=== PATIENT | female | born 1985 | race Caucasian/White ===

== ENCOUNTER 2017-12-17 20:00 | Inpatient (IN) | payer BC ==
[2017-12-17] MEDS ORDERED: Insulin Regular 300 UNITS/3 ML VIAL SC PRN (23:13)
[2017-12-17] MEDS ORDERED: Penicillin G Potassium 5 MILL.UNITS in Sodium Chloride 0.9% 100 ML IVPB SCH (23:13)
[2017-12-17] MEDS ORDERED: Misoprostol 200 MCG TAB PR PRN (23:13)
[2017-12-17] MEDS ORDERED: Ibuprofen 800 MG TAB PO PRN (23:13)
[2017-12-17] MEDS ORDERED: HYDROcodone/Acetaminophen 5/325 mg Tablet PO PRN (23:13)
[2017-12-17] MEDS ORDERED: Carboprost 250 MCG/ML AMP IM PRN (23:13)
[2017-12-17] MEDS ORDERED: Methylergonovine 0.2 MG/ML VIAL IM PRN (23:13)
[2017-12-17] MEDS ORDERED: Zolpidem Tartrate 5 MG TAB PO PRN (23:13)
[2017-12-17] MEDS ORDERED: Acetaminophen 500 MG TAB PO PRN (23:13)
[2017-12-17] MEDS ORDERED: Lidocaine 1% (PF) 30 ML VIAL SC PRN (23:13)
[2017-12-17] MEDS ORDERED: Promethazine HCl 25 MG/ML VIAL IM PRN (23:13)
[2017-12-17] MEDS ORDERED: Ondansetron HCl/PF 4 MG/2 ML Vial IVP PRN (23:13)
[2017-12-17] MEDS ORDERED: LR / Pitocin 40 units/1000 ml 1,000 ML IV PRN (23:13)
[2017-12-17] MEDS ORDERED: Dextrose 50% Abboject 50 ML SYRINGE SLOW IVP PRN (23:13)
[2017-12-17] MEDS ORDERED: Dextrose 5% in Water 1,000 ML IV PRN (23:13)
[2017-12-17] MEDS ORDERED: Diphenoxylate HCl/Atropine Tablet PO PRN (23:13)
[2017-12-17] MEDS ORDERED: Insulin Detemir 100 UNITS/ML 35 UNITS in Pre-Filled Syringe 1 EACH SC SCH (23:45)
[2017-12-17 23:48] VITALS: BMI 41.8
[2017-12-18] MEDS: Lactated Ringer's 1,000 ML IV SCH ×3 (00:20→17:02)
[2017-12-18 00:49] LABS: Hemoglobin 11.3 g/dL (12.0-16.0); Mean Corpuscular HGB CONC 31.9 g/dL (32.0-36.0); Mean Corpuscular Hemoglobin 26.1 pg (27.0-31.0); Mean Corpuscular Volume 81.7 fl (81.0-99.0); Mean Platelet Volume 8.1 fL (7.4-10.4); Platelet Count 275 thou/uL (130-400); RBC Distribution Width 14.9 % (11.5-14.5); Red Blood Cell (RBC) Count 4.32 mill/uL (4.20-5.40)
[2017-12-18] MEDS: Misoprostol 100 MCG TAB VAG SCH ×4 (00:52→17:03)
[2017-12-18 01:31] LABS: HBSAg Index 0.33 S/CO (0-0.99); Hep B Surf Ag Non-Reactive S/CO (NonReactive); Syphilis Antibody Nonreactive (Nonreactive); Syphilis Antibody Index 0.06 S/CO (<1.00 Non-Reactive)
[2017-12-18] MEDS: Penicillin G 2.5 MILL.units 2.5 MILL.UNITS in Premix Bag 1 BAG IVPB SCH ×5 (01:47→17:02)
[2017-12-18] MEDS: LR 500 ML/Oxytocin 10 units 500 ML IV SCH ×2 (01:47→05:33)
[2017-12-18] MEDS ORDERED: DISCONTINUE ALL PREVIOUS NARCOTICS FS SCH (07:30)
[2017-12-18] MEDS ORDERED: Bupivacaine 0.5% 20 ML, Fentanyl 400 MCG in Sodium Chloride 0.9% 72 ML EPIDURAL SCH (07:30)
[2017-12-18] MEDS ORDERED: Naloxone HCl 0.4 mg/ml Vial IVP PRN ×2 (08:38)
[2017-12-18] MEDS ORDERED: Promethazine HCl 25 MG/ML VIAL IM PRN (08:38)
[2017-12-18] MEDS ORDERED: diphenhydrAMINE 50 MG/ML VIAL IVP PRN (08:38)
[2017-12-18] MEDS ORDERED: Lactated Ringer's 500 ML IV PRN (08:38)
[2017-12-18] MEDS ORDERED: Eucerin (Mineral Oil/Petrolatum,White) 30 gm Jar TOP PRN (08:38)
[2017-12-18] MEDS ORDERED: Acetaminophen 325 MG TAB PO PRN (08:38)
[2017-12-18] MEDS ORDERED: ePHEDrine/0.9% NaCl/PF SYRINGE 50 mg/10 ml SLOW IVP PRN (08:38)
[2017-12-18] MEDS ORDERED: Ondansetron HCl/PF 4 MG/2 ML Vial IVP PRN (08:38)
[2017-12-18] MEDS ORDERED: Fentanyl 4mcg/Marcaine 0.1% Cassette 100 ML EPIDURAL SCH (08:45)
[2017-12-18] MEDS ORDERED: Communication Order-Pharmacy FS SCH (08:45)
--- NOTE | 2017-12-18 08:51 | PDOC.LDHP ---
Labor and Delivery H&P Chief complaint: scheduled induction HPI: 32yo at 38w1d by LMP here for IOL due to IDDM. No complaints. No PIH sx. Received 1 dose cytotec over night. Current gestational age (weeks): 38 Due date: 12/31/17 Dating criteria: last menstrual period Grav: 2 Para: 1 Abnormal US findings: Yes (S>D EFW 96%) Past Medical History: T2DM, insulin controlled during Current medications: pre- vitamins, other (levemir 32 q am/72 q pm, novolog 04/05/12 with meals) Previous surgical history: other (LEEP) Allergies/Adverse Reactions: Allergies Allergy/AdvReac Type Severity Reaction Status Date / Time Sulfa (Sulfonamide Allergy Mild Rash Verified 12/17/17 23:45 Antibiotics) Social history: none - Physical Exam Vital signs reviewed and normal: yes Abnormal vital signs: occ mild range bp General: NAD Heart: RRR Lungs: CTAB Abdomen: gravid Extremeties: no edema FHT: category 1 Concow contractions every: q3min - Vaginal Exam cm dilated: 4 Effacement: 50% Station: -2 (arom clear) - OB Labs Blood type: A RH: positive Antibody Screen: negative HIV: negative RPR: negative HEPSAg: negative GBS: positive Rubella: immune - Assessment L&D Assessment: medically indicated induction - Plan Plan: admit to L&D, labor augmentation if indicated, informed consent obtained, anesthesia consult for pain management, other (q4hr accuchecks with mild SSI, clears for BS < 90, took 1/2 dose levemir last night.)
[2017-12-18] MEDS ORDERED: LR / Pitocin 40 units/1000 ml 1,000 ML ONE (09:40)
[2017-12-18] MEDS ORDERED: Lidocaine 1% (PF) 30 ML VIAL ONE (09:40)
--- NOTE | 2017-12-18 11:59 | PDOC.OPDEL ---
OB Operative/Delivery Note Delivery Dr/Surgeon: Zahira Assist: n/a Pre-Delivery Diagnosis: medically indicated induction Procedure/Post Delivery Dx: spontaneous vaginal delivery Weeks gestation: 38 Anesthesia: epidural - Findings A Sex: male Weight: 8 lb 15 oz - Additional Findings/Plan Placenta delivered: spontaneous Repaired Obstetrical Laceration: periurethral (left repaired with 3-0 vicryl, hemostasis noted) Estimated blood loss: 200 Compilations/Other Findings: brief shoulder dystocia, baby delivered OA presentation, NC x 1, reduced at perineum, restituted to right, right shoulder anterior, delivered with Gopi and suprapubic by TIO Morgan, total time on perineum < 1min. Gerald present shortly after delivery, no apparent injury at the time of after exam by Gerald. Cord gas sent. Baby skin to skin with mom after initial eval. Post delivery plan: routine recovery
[2017-12-18 12:01] LABS: Actual Bicarbonate (HCO3a) 29.6 mEq/L (22-26); Base Excess (BEa) -1.5 mEq/L (0 (+/-) 2.5)
[2017-12-18] MEDS ORDERED: diphenhydrAMINE 25 MG CAP PO PRN (16:13)
[2017-12-18] MEDS ORDERED: HYDROcodone/Acetaminophen 5/325 mg Tablet PO PRN ×2 (16:13)
[2017-12-18] MEDS ORDERED: Benzocaine/Menthol 20-0.5% 60 ML CAN TOP PRN (16:13)
[2017-12-18] MEDS ORDERED: Lanolin Ointment 7 GM TUBE TOP PRN (16:13)
[2017-12-18] MEDS ORDERED: Preparation H Ointment 28 GM TUBE PR PRN (16:13)
[2017-12-18] MEDS ORDERED: Milk Of Magnesia 30 ML UDCUP PO PRN (16:13)
[2017-12-18] MEDS ORDERED: LR / Pitocin 40 units/1000 ml 1,000 ML IV SCH (16:13)
[2017-12-18] MEDS ORDERED: Bisacodyl 10 MG SUPP PR PRN (16:13)
[2017-12-18] MEDS ORDERED: Ibuprofen 800 MG TAB PO SCH (16:30)
[2017-12-18] MEDS: metFORMIN 500 MG TAB PO SCH (17:46)
[2017-12-18] MEDS: Ferrous Sulfate 325 MG TAB PO SCH (17:48)
[2017-12-18] MEDS ORDERED: Bupivacaine HCl 0.5%/Epinephrine 1:200,000/PF 30 ml Vial ONE (18:40)
[2017-12-18] MEDS ORDERED: Bupivacaine 0.25% HCL 30 ML VIAL ONE (18:40)
[2017-12-18] MEDS ORDERED: Adacel (T-DAP) 0.5 ML VIAL IM ONE (21:00)
[2017-12-18] MEDS ORDERED: Insulin Detemir 100 UNITS/ML 35 UNITS in Pre-Filled Syringe 1 EACH SC SCH (21:00)
[2017-12-18] MEDS: Ibuprofen 800 MG TAB PO SCH (21:04)
[2017-12-18] MEDS: Docusate Calcium (SURFAK) 240 MG CAP PO SCH (23:48)
[2017-12-19] MEDS: Ibuprofen 800 MG TAB PO SCH ×3 (05:55→21:48)
[2017-12-19] MEDS ORDERED: glyBURIDE 2.5 MG TAB PO SCH (08:00)
--- NOTE | 2017-12-19 08:00 | PDOC.PP ---
Post Progress Note Post Day #: 1 PO intake tolerated: yes Flatus: yes Ambulation: yes Vital Signs (12 hours) Temp Pulse Resp BP 12/19/17 05:52 97.8 F 81 16 131/88 12/18/17 23:40 97.7 F 84 18 123/76 Weight Weight 229 lb - Physical Examination General: NAD Respiratory: non-labored breathing Abdominal: no distention, appropriately TTP Fundus firm & at: umb Skin: no rash Neurological: no gross focal deficits Psychiatric: normal affect Result Diagrams: 12/18/17 00:20 Additional Labs: Post Labs Blood Type A POSITIVE 12/18/17 00:20 Hep Bs Antigen Non-Reactive S/CO (NonReactive) 12/18/17 00:20 (1) Type 2 diabetes mellitus treated with insulin Code(s): E11.9 - TYPE 2 DIABETES MELLITUS WITHOUT COMPLICATIONS; Z79.4 - FOREPART RASPER (CURRENT) USE OF INSULIN Status: Acute (2) Term delivered Code(s): O80 - ENCOUNTER FOR FULL-TERM UNCOMPLICATED DELIVERY Status: Acute - Assessment/Plan VSSAF Doing well, lochia wnl. T2DM- started on po meds- metformin 1000 bid and glyburide 2.5 bid. Monitor BS. Rh pos RImm Cont PP care, home tomorrow. Meds called out to pharmacy.
[2017-12-19] MEDS: metFORMIN 500 MG TAB PO SCH ×2 (09:40→17:28)
[2017-12-19] MEDS: Prenatal Vitamin 1 TAB PO SCH (09:40)
[2017-12-19] MEDS: Docusate Calcium (SURFAK) 240 MG CAP PO SCH ×2 (09:40→21:48)
[2017-12-19] MEDS: Ferrous Sulfate 325 MG TAB PO SCH ×2 (09:41→17:29)
[2017-12-19] MEDS: glyBURIDE 2.5 MG TAB PO SCH (21:48)
[2017-12-20] MEDS: Ibuprofen 800 MG TAB PO SCH ×2 (07:02→14:39)
[2017-12-20] MEDS: Ferrous Sulfate 325 MG TAB PO SCH (07:16)
[2017-12-20 07:52] VITALS: BP 137/80; TEMP 97.9
[2017-12-20] MEDS: glyBURIDE 2.5 MG TAB PO SCH (08:48)
[2017-12-20] MEDS: Docusate Calcium (SURFAK) 240 MG CAP PO SCH (08:48)
[2017-12-20] MEDS: Prenatal Vitamin 1 TAB PO SCH (08:48)
[2017-12-20] MEDS: metFORMIN 500 MG TAB PO SCH (08:48)
== END 2017-12-20 16:48 | disposition home or self-care (01) | DRG 774 ==
LOC: L&D 22:55 → 3SE 12-18 16:00
PROVIDERS: ADMIT Student in an Organized Health Care Education/Training Program; ATTEND Student in an Organized Health Care Education/Training Program
PROC: 10907ZC Drainage of Amniotic Fluid, Therapeutic from Products of Conception, Via Natural or Artificial Opening (ICD-10-PCS; 2017-12-17)
PROC: 3E0P7VZ Introduction of Hormone into Female Reproductive, Via Natural or Artificial Opening (ICD-10-PCS; principal; 2017-12-18)
PROC: 0UQMXZZ Repair Vulva, External Approach (ICD-10-PCS; 2017-12-18)
PROC: 10E0XZZ Delivery of Products of Conception, External Approach (ICD-10-PCS; 2017-12-18)
DX: O24.12 Pre-existing type 2 diabetes mellitus, in childbirth (principal); E11.9 Type 2 diabetes mellitus without complications; Z37.0 Single live birth; Z3A.38 38 weeks gestation of pregnancy; Z79.4 Long term (current) use of insulin; O99.824 Streptococcus B carrier state complicating childbirth; O69.81X0 Labor and delivery complicated by cord around neck, without compression, not applicable or unspecified; O66.0 Obstructed labor due to shoulder dystocia; O71.82 Other specified trauma to perineum and vulva
CPT/HCPCS: 36416; 51702; 82805; 85027; 86780; 86850; 86900; 86901; 87340; J0595; J0670; J1815; J2001; J2540; J3010; J3490; J7050; J7120; S0020

== ENCOUNTER 2020-12-14 15:32 | Outpatient (CLI) | payer BC ==
--- NOTE | 2020-12-14 16:06 | ULT ---
EXAM: Soft tissue ultrasound of the left axilla HISTORY: Enlarged left axillary lymph nodes COMPARISON: None FINDINGS: There is a hypoechoic well-circumscribed structure in the left axilla measuring 9 mm in gre atest dimension. This has a hyperechoic center. This is immediately beneath the dermis and abuts the dermis. IMPRESSION: Benign-appearing structure in the left axilla may represent an axillary lymph node. Howev er, its location immediately beneath the dermis suggests that this may represent a sebaceous cyst or other skin-based lesion.
== END 2020-12-14 15:33 | disposition home or self-care (01) ==
LOC: BICULT 15:32
PROVIDERS: ATTEND Family Medicine
DX: R59.9 Enlarged lymph nodes, unspecified (principal)
CPT/HCPCS: 76999